=== PATIENT | male | born 1965 | race Hispanic/Latino ===

== ENCOUNTER 2025-06-02 21:13 | Inpatient (IN) | payer OTHER ==
[2025-06-02] MEDS ORDERED: Ondansetron PF 4 MG/2 ML Vial IVP PRN (21:37)
[2025-06-02] MEDS ORDERED: Senokot S 8.6-50 MG TAB PO PRN (21:37)
[2025-06-02] MEDS ORDERED: Dextrose 50% Abboject 50 ML SYRINGE SLOW IVP PRN (21:45)
[2025-06-02] MEDS ORDERED: Glucagon 1 MG/ML KIT IM PRN (21:45)
[2025-06-02] MEDS ORDERED: Electrolyte Replacement Protocol 1 EACH FS SCH (21:45)
[2025-06-02 21:59] VITALS: BMI 40.2
[2025-06-02] MEDS: Acetaminophen 325 MG TAB PO PRN (22:42)
[2025-06-02] MEDS: Nitroglycerin 2% Ointment 1 INCH/1 GM Packet TOP SCH (22:42)
[2025-06-02 23:31] LABS: Troponin I 0.027 ng/mL (< 0.028)
[2025-06-03 01:30] LABS: Troponin I 0.026 ng/mL (< 0.028)
[2025-06-03 05:31] LABS: #Basophils 0.06 10x3/uL (0.0-0.2); #Eosinophils 0.17 10x3/uL (0.0-0.7); #Monocytes 0.41 10x3/uL (0.11-0.59); #Neutrophils 3.09 10x3/uL (1.40-6.50); %Basophils 1.0 % (0.0-1.0); %Eosinophils 2.8 % (0.0-10.0); %Lymphocytes 37.6 % (21.0-51.0); %Monocytes 6.7 % (0.0-10.0); %Neutrophils 50.8 % (42.0-75.0); Hematocrit 37.2 % (42.0-52.0); Hemoglobin 12.3 g/dL (14.0-18.0); Mean Corpuscular Hemoglobin 30.8 pg (27.0-31.0); Mean Corpuscular Volume 93.2 fL (78.0-98.0); Platelet Count 224 10x3/uL (130-400); Red Blood Cell (RBC) Count 3.99 mill/uL (4.70-6.10); White Blood Cell (WBC) Count 6.09 10x3/uL (4.8-10.8)
[2025-06-03 06:05] LABS: ALT (SGPT) 23 U/L (Less than 45); AST (SGOT) 19 U/L (11-34); Albumin 3.4 g/dL (3.1-4.5); Alkaline Phosphatase 77 U/L (40-110); Anion Gap 16 mmol/L (10-20); BUN (Urea Nitrogen) 14 mg/dL (8.4-25.7); Bilirubin, Total 0.3 mg/dL (0.3-1.2); Calc. Creatinine Clearance 121 mL/min (70-130); Calcium 9.0 mg/dL (7.8-10.44); Carbon Dioxide 25 mmol/L (22-29); Cardiac Risk 4.1 (Less than 4.5); Chloride 104 mmol/L (98-107); Cholesterol 164 mg/dl (< 200 Desired); Globulin 3.5 g/dL (2.4-3.5); Glucose 156 mg/dL (70-105); HDL Cholesterol 40 mg/dL (>60 Neg Risk); LDL Cholesterol, Calculated 85 mg/dL; Potassium 4.0 mmol/L (3.5-5.1); Sodium 141 mmol/L (136-145); Triglycerides 197 mg/dL (Less than 150)
[2025-06-03] MEDS: Enoxaparin 100 MG (1 mL) SYRINGE SC SCH (08:44)
[2025-06-03] MEDS: Aspirin Chewable 81 MG TAB PO SCH (08:44)
[2025-06-03] MEDS: Enoxaparin 30 MG (0.3 mL) SYRINGE SC SCH (08:44)
[2025-06-03] MEDS: Aspirin 81 mg Enteric Coated Tablet PO SCH (08:44)
[2025-06-03] MEDS ORDERED: Enoxaparin 80 MG (0.8 mL) SYRINGE SC SCH (09:00)
[2025-06-03] MEDS ORDERED: Nitroglycerin 0.4 MG TAB (25 Tab Bottle) SL PRN (10:04)
[2025-06-03] MEDS: hydrALAZINE 20 MG/ML VIAL SLOW IVP PRN (15:47)
[2025-06-03] MEDS: Furosemide 100 MG (10 mL) VIAL SLOW IVP SCH (18:01)
[2025-06-03] MEDS: Amiodarone 200 MG TAB PO SCH (20:05)
[2025-06-04] MEDS: Furosemide 40 MG (4 mL) VIAL SLOW IVP SCH (05:40)
[2025-06-04] MEDS: Calcium Carbonate 500 MG ChewTAB PO PRN (06:19)
[2025-06-04] MEDS: metFORMIN XR 500 MG ER.TAB PO SCH (08:25)
[2025-06-04] MEDS: Allopurinol 100 MG TAB PO SCH (08:25)
[2025-06-04] MEDS: Sacubitril 24MG/Valsartan 26 MG TAB PO SCH (20:52)
[2025-06-05 05:57] LABS: #Basophils 0.09 10x3/uL (0.0-0.2); #Eosinophils 0.17 10x3/uL (0.0-0.7); #Monocytes 0.65 10x3/uL (0.11-0.59); #Neutrophils 4.33 10x3/uL (1.40-6.50); %Basophils 1.0 % (0.0-1.0); %Eosinophils 1.9 % (0.0-10.0); %Lymphocytes 39.3 % (21.0-51.0); %Monocytes 7.4 % (0.0-10.0); %Neutrophils 49.7 % (42.0-75.0); Hematocrit 43.7 % (42.0-52.0); Hemoglobin 15.1 g/dL (14.0-18.0); Mean Corpuscular Hemoglobin 31.4 pg (27.0-31.0); Mean Corpuscular Volume 90.9 fL (78.0-98.0); Platelet Count 289 10x3/uL (130-400); Red Blood Cell (RBC) Count 4.81 mill/uL (4.70-6.10); White Blood Cell (WBC) Count 8.73 10x3/uL (4.8-10.8)
[2025-06-05 06:19] LABS: ALT (SGPT) 34 U/L (Less than 45); AST (SGOT) 34 U/L (11-34); Albumin 3.9 g/dL (3.1-4.5); Alkaline Phosphatase 84 U/L (40-110); Anion Gap 18 mmol/L (10-20); BUN (Urea Nitrogen) 22 mg/dL (8.4-25.7); Bilirubin, Total 0.9 mg/dL (0.3-1.2); Calc. Creatinine Clearance 103 mL/min (70-130); Calcium 9.4 mg/dL (7.8-10.44); Carbon Dioxide 26 mmol/L (22-29); Cardiac Risk 4.1 (Less than 4.5); Chloride 100 mmol/L (98-107); Cholesterol 170 mg/dl (< 200 Desired); Globulin 4.1 g/dL (2.4-3.5); Glucose 158 mg/dL (70-105); HDL Cholesterol 41 mg/dL (>60 Neg Risk); LDL Cholesterol, Calculated 98 mg/dL; Potassium 3.7 mmol/L (3.5-5.1); Sodium 140 mmol/L (136-145); Triglycerides 154 mg/dL (Less than 150)
[2025-06-05 06:41] LABS: Free T4 (Free Thyroxine) 1.07 ng/dL (0.70-1.48)
[2025-06-05] MEDS: Dapagliflozin Propanediol 10 MG TAB PO SCH (09:14)
[2025-06-05] MEDS: Spironolactone 25 MG TAB PO SCH (09:51)
[2025-06-06] MEDS: Enoxaparin 40 MG (0.4 mL) SYRINGE SC SCH (08:47)
[2025-06-06] MEDS: Spironolactone 25 MG TAB PO SCH (08:49)
[2025-06-06] MEDS: Amiodarone 200 MG TAB PO SCH (08:49)
[2025-06-07] MEDS: Furosemide 40 MG TAB PO SCH (08:57)
[2025-06-07 15:17] VITALS: BP 134/65
[2025-06-07 15:19] VITALS: TEMP 98.2
[2025-06-07 16:35] LABS: Anion Gap 18 mmol/L (10-20); BUN (Urea Nitrogen) 27 mg/dL (8.4-25.7); Calc. Creatinine Clearance 80 mL/min (70-130); Calcium 9.8 mg/dL (7.8-10.44); Carbon Dioxide 26 mmol/L (22-29); Chloride 100 mmol/L (98-107); Glucose 133 mg/dL (70-105); Potassium 3.9 mmol/L (3.5-5.1); Sodium 140 mmol/L (136-145)
== END 2025-06-07 17:30 | disposition home or self-care (01) | DRG 291 ==
LOC: OBS 21:13 → OBSVTOIN 06-03 14:33
PROVIDERS: ADMIT Internal Medicine; ATTEND Internal Medicine
DX: I11.0 Hypertensive heart disease with heart failure (principal); I50.33 Acute on chronic diastolic (congestive) heart failure; I47.20 Ventricular tachycardia, unspecified; E66.9 Obesity, unspecified; E78.5 Hyperlipidemia, unspecified; F39 Unspecified mood [affective] disorder; I25.10 Atherosclerotic heart disease of native coronary artery without angina pectoris; I50.9 Heart failure, unspecified; G47.33 Obstructive sleep apnea (adult) (pediatric); E11.65 Type 2 diabetes mellitus with hyperglycemia; Z95.810 Presence of automatic (implantable) cardiac defibrillator; Z71.3 Dietary counseling and surveillance; Z87.891 Personal history of nicotine dependence; Z79.82 Long term (current) use of aspirin; Z79.899 Other long term (current) drug therapy; Z79.4 Long term (current) use of insulin; Z91.148 Patient's other noncompliance with medication regimen for other reason; I25.2 Old myocardial infarction; Z68.38 Body mass index [BMI] 38.0-38.9, adult
CPT/HCPCS: 36415; 36416; 80048; 80053; 80061; 83036; 83880; 84439; 84443; 84481; 84484; 85025; 93306; 96372; 96374; 96375; G0378; J0360; J1650; J1815; J1940; J2060; J2270; J7030